=== PATIENT | female | born 1955 ===

== ENCOUNTER 2021-03-27 05:00 | Day surgery (SDC) | payer OTHER ==
[~2021-03-27 05:00] MED LIST: ANTIVERT PO; COZAAR50 MG PO; DICLOFENAC-MIS1 EAC3 PO; PEPC PO; PROTONIX40 MG PO; SINGULAIR10 MG PO; ZYRTEC10 M3 PO; [UNRECOGNIZED DRUG - OTHER] PO
== END 2021-03-27 12:00 | disposition home or self-care (01) ==
LOC: CIR.AMB 05:00
PROVIDERS: ATTEND Colon & Rectal Surgery
DX: R15.9 Full incontinence of feces (principal); Z20.822 Contact with and (suspected) exposure to COVID-19
CPT/HCPCS: 64581; 95971; C1778

== ENCOUNTER 2021-04-10 05:00 | Day surgery (SDC) | payer OTHER | END 2021-04-10 11:45 | disposition home or self-care (01) | LOC: CIR.AMB 05:00 | PROVIDERS: ATTEND Colon & Rectal Surgery | DX: R15.9 Full incontinence of feces (principal); Z20.822 Contact with and (suspected) exposure to COVID-19 | CPT/HCPCS: 64590; 95971; L8679 ==

== ENCOUNTER 2021-09-02 10:20 | Day surgery (SDC) | payer OTHER | END 2021-09-02 16:48 | disposition home or self-care (01) | LOC: AMB-ENDOS 10:20 | PROVIDERS: ATTEND Colon & Rectal Surgery | DX: D12.3 Benign neoplasm of transverse colon (principal); Z20.822 Contact with and (suspected) exposure to COVID-19; Z12.11 Encounter for screening for malignant neoplasm of colon ==

== ENCOUNTER 2021-09-07 06:00 | Day surgery (SDC) | payer OTHER | END 2021-09-07 11:00 | disposition home or self-care (01) | LOC: CIR.AMB 06:00 | PROVIDERS: ATTEND Colon & Rectal Surgery | DX: T85.840A Pain due to nervous system prosthetic devices, implants and grafts, initial encounter (principal); Z20.822 Contact with and (suspected) exposure to COVID-19 ==